=== PATIENT | female | born 1985 | race Caucasian/White ===

== ENCOUNTER 2016-03-25 15:03 | Emergency (ER) | payer OTHER ==
[~2016-03-25] VITALS: Ht 160 cm; Wt 74.0 kg
[~2016-03-25 15:03] MED LIST: BEN25 PO; CEPH-443 PO
[2016-03-25 15:15] VITALS: Ht 160 cm; Wt 74.0 kg
--- NOTE | 2016-03-25 15:56 | ERD ---
ER Documentation Chief Complaint Date/Time DATE: 03/25/16 TIME: 15:53 Chief Complaint BACK PAIN HPI This is a 31-year-old female who presents to the emergency department today complaining of back pain that started last night. Patient states she was at a "sanity" fitness class when she jumped up to date of in jumped down and felt short pain in her back. States she has not taken any medication for the pain.Denies any dysuria, loss of bowel or bladder control, fevers or chills. ROS All systems reviewed and are negative except as per history of present illness. Medications Home Meds Active Scripts Cyclobenzaprine Hcl* (Cyclobenzaprine Hcl*) 10 Mg Tablet, 10 MG PO QHS, #7 TAB Prov:ALEX ASH PA-C 03/25/16 Naproxen* (Naprosyn*) 500 Mg Tablet, 500 MG PO BID Y for PAIN AND/OR INFLAMMATION, #30 TAB Prov:ALEX ASH PA-C 03/25/16 Tramadol HCl (Tramadol HCl) 50 Mg Tablet, 50 MG PO Q4 Y for PAIN, #20 TAB Prov:ALEX ASHC 03/25/16 Diphenhydramine Hcl* (Benadryl*) 25 Mg Cap, 25 MG PO Q6, #14 CAP Prov:VALERY WALTERS PA-C 01/04/15 Cephalexin* (Keflex*) 500 Mg Capsule, 500 MG PO QID for 5 Days, CAP Prov:VALERY WALTERS PA-C 01/04/15 Allergies Allergies: Coded Allergies: No Known Allergy (Unverified , 01/04/15) PMhx/Soc History of Surgery: Yes (TONSILECTOMY) Anesthesia Reaction: No Hx Neurological Disorder: No Hx Respiratory Disorders: No Hx Cardiac Disorders: No Hx Psychiatric Problems: No Hx Miscellaneous Medical Probl: No Hx Alcohol Use: No Hx Substance Use: No Hx Tobacco Use: No Physical Exam Vitals Vital Signs Date Time Temp Pulse Resp B/P Pulse Ox O2 Delivery O2 Flow Rate FiO2 03/25/16 15:15 98.0 86 19 127/73 98 Physical Exam Const: No acute distress Head: Atraumatic Eyes: Normal Conjunctiva ENT: Normal External Ears, Nose and Mouth. Neck: Full range of motion..~ No meningismus. Resp: Clear to auscultation bilaterally Cardio: Regular rate and rhythm, no murmurs Abd: Soft, non tender, non distended. Normal bowel sounds Skin: No petechiae or rashes Back: Lumbar spine no obvious deformity, no ecchymosis, no step-off. Midline tenderness and bilateral paraspinal tenderness left side worse than right. Positive straight leg raise on left side. Pulses 2+. Distal neurovascularly intact. Ext: No cyanosis, or edema Neur: Awake and alert Psych: Normal Mood and Affect Results 24 hrs Laboratory Tests Test 03/25/16 16:08 Bedside Urine Blood Negative Bedside Urine Glucose (UA) Negative Bedside Urine Ketones (LAB) Negative Bedside Urine Leukocyte Esterase (L Negative Bedside Urine Nitrite (LAB) Negative Bedside Urine Protein (LAB) Negative Bedside Urine pH (LAB) 6.0 Current Medications Medications (Trade) Dose Ordered Sig/Otis Route PRN Reason Start Time Stop Time Status Last Admin Dose Admin Ibuprofen (Motrin) 800 mg ONCE ONCE PO 03/25/16 16:00 03/25/16 16:01 DC 03/25/16 15:56 Patient: PRIMITIVO HYLTON : 1985 Age: 31 Sex: F MR #: [id number] DOS: 03/25/16 0000 Ordering MD: ALEX ASH PA-C Location: [facility] Room/Bed: PROCEDURE: Lumbar spine series CLINICAL INDICATION: Back pain after trauma TECHNIQUE: Three views of the lumbar spine are available for review COMPARISON: None available FINDINGS: The normal lumbar lordosis is preserved. Alignment is intact. No acute fracture or dislocation is seen. Vertebral body heights are well maintained. Intervertebral disk heights are well maintained. Paraspinous soft tissues are grossly unremarkable. IMPRESSION: 1. Unremarkable lumbar spine series. RPTAT: KK .Saad Hester MD, Date Time Electronically viewed and signed by .Saad Hester MD, MD on 2016 17:45 .B/ CC: ALEX ASH PA-C Procedures/MDM This 31-year-old female who presents to the emergency department today complaining of back pain that started last night while doing a fitness class. Patient was concerned that there is something may be wrong with her desk Her that I would not be able to see herniation on lumbar spine films but I would be able to see disc height. I did offer to obtain imaging for the patient and patient accepted. Per the radiology report edges of the lumbar spine are unremarkable. There is no acute fracture or dislocation. Vertebral body height are well-maintained. Intervertebral disc height are well-maintained. Soft tissues are unremarkable. Patient's symptoms at this time is consistent with strain versus sprain. Patient is afebrile and otherwise well-appearing. She has no loss of bowel or bladder control and I have low suspicion for cauda equina or abscess. Explained the results the patient. UA is negative. Low suspicion for UTI, pyelonephritis, nephrolithiasis. Urine test is negative. Patient given Motrin here in the emergency department as she was driving herself. I'll give her a short course of tramadol, Naprosyn and Flexeril for home. She was instructed to do active breast and not sit for prolonged periods of time. She was instructed to refrain from doing her insanity class or weight lifting until her symptoms improved. At this time the patient is stable for discharge and outpatient management. Patient should follow up with their PCP in the next 1-2 days. They may return to the emergency department sooner for any persistent or worsening of symptoms. Patient understood and agreed with the plan. Departure Diagnosis: Primary Impression: Injury of back Encounter type: initial encounter Qualified Code: S39.92XA - Injury of back , initial encounter Condition: Fair ALEX ASH PA-C Mar 25, 2016 15:56
[2016-03-25] MEDS ORDERED: IBUPROFEN 800 MG TAB PO ONE (16:00)
[2016-03-25 16:08] LABS: URINE BLOOD (Dip) POC Negative (NEGATIVE)
--- NOTE | 2016-03-25 17:45 | RADRPT ---
PROCEDURE: Lumbar spine series CLINICAL INDICATION: Back pain after trauma TECHNIQUE: Three views of the lumbar spine are available for review COMPARISON: None available FINDINGS: The normal lumbar lordosis is preserved. Alignment is intact. No acute fracture or dislocation is s een. Vertebral body heights are well maintained. Intervertebral disk heights are well maintained. Paraspinous soft tissues are grossly unremarkable. IMPRESSION: 1. Unremarkable lumbar spine series. RPTAT: KK .Saad Hester MD, Date Time Electronically viewed and signed by .Saad Hester MD, on 03/25/2016 17:45 .B/
[2016-03-25] MEDS ORDERED: ULT50 PO (17:53)
[2016-03-25] MEDS ORDERED: CYCL-319 PO (17:54)
[2016-03-25] MEDS ORDERED: NAPR-260 PO (17:54)
== END 2016-03-25 18:05 | disposition home or self-care (01) ==
LOC: FTE 15:03
DX: S39.92XA Unspecified injury of lower back, initial encounter (principal); X50.1XXA Overexertion from prolonged static or awkward postures, initial encounter; Y92.89 Other specified places as the place of occurrence of the external cause
CPT/HCPCS: 72100; 81003; Z7502; Z7610